=== PATIENT | male | born 1990 | race Caucasian/White ===

== ENCOUNTER 2018-01-03 19:34 | Inpatient (IN) | payer OTHER ==
[2018-01-03] MEDS ORDERED: Mouth Piece, Nicotine* 1 EACH CARTRIDGE INH PRN (19:58)
[2018-01-03] MEDS ORDERED: Nicotine Inhaler* 10 MG AMP INH PRN (19:58)
--- NOTE | 2018-01-03 20:08 | ED ---
Psychiatric Complaint - HPI Summary HPI Summary: The pt is a 27 y/o male presenting to [facility] c/o of SI for weeks worsened today. 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 The pt fears being a burden to his family if he drops out of school and thinks suicide is a better way out. He notes anxiety and insomnia. 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 - History Of Current Complaint Chief Complaint: EDMentalHealth Time Seen by Provider: 01/03/18 19:51 Hx Obtained From: Patient Onset/Duration: Lasting Weeks Timing: Constant Character: Anxious Aggravating Factor(s): Recent Stress - Schoolwork Alleviating Factor(s): Nothing Has Suicidal: Reports: Thoughts, With A Plan - Allergies/Home Medications Allergies/Adverse Reactions: Allergies Allergy/AdvReac Type Severity Reaction Status Date / Time No Known Allergies Allergy Verified 01/03/18 19:39 PMH/Surg Hx/FS Hx/Imm Hx Previously Healthy: Yes Endocrine/Hematology History: Denies: Hx Diabetes Cardiovascular History: Denies: Hx Hypertension Respiratory History: Denies: Hx Asthma Psychiatric History: Denies: Hx Depression - Cancer History Cancer Type, Location and Year: None reported - Surgical History Surgery Procedure, Year, and Place: None reported Infectious Disease History: No Infectious Disease History: Denies: Traveled Outside the [place] in Last 30 Days - Family History Known Family History: Positive: Other - Depression - mother; Suicide- Paternal aunt - Social History Occupation: Student Lives: Dormitory/Roommates Review of Systems Constitutional: Other - Positive: Insomnia Positive: Anxious, Other - Positive: SI with plans All Other Systems Reviewed And Are Negative: Yes Physical Exam - Summary Physical Exam Summary: General: well-appearing, no pain distress Skin: warm, color reflects adequate perfusion, dry Head: normal Eyes: EOMI, NEGRITA ENT: normal Neck: supple, nontender Respiratory: CTA, breath sounds present Cardiovascular: RRR Abdomen: soft, nontender Bowel: present Musculoskeletal: normal, strength/ROM intact Neurological: sensory/motor intact, A&O x3 Psychological: affect/mood appropriate Triage Information Reviewed: Yes Vital Signs On Initial Exam: Initial Vitals Temp Pulse Resp BP Pulse Ox 98.6 F 66 20 144/88 97 01/03/18 19:36 01/03/18 19:36 01/03/18 19:36 01/03/18 19:36 01/03/18 19:36 Vital Signs Reviewed: Yes Diagnostics - Vital Signs Vital Signs Temp Pulse Resp BP Pulse Ox 01/03/18 19:36 98.6 F 66 20 144/88 97 - Laboratory Result Diagrams: 01/03/18 20:09 01/03/18 20:09 Lab Statement: Any lab studies that have been ordered have been reviewed, and results considered in the medical decision making process. Course/Dx - Course Course Of Treatment: Medications reviewed. Allergies noted. MHE AND DISPOSITION PENDING AT SHIFT CHANGE - Differential Dx/Clinical Impression Provider Diagnosis: Mental health problem Discharge - Sign-Out/Discharge Documenting (check all that apply): Sign-Out Patient Signing out patient TO: Hi Yeh - 22:00hrs - Discharge Plan Referrals: [facility] [Provider Group] - Attestation Statements Document Initiated by Scribe: Yes Documenting Scribe: Phoebe Jackson Provider For Whom Ronen is Documenting (Include Credential): Dr. Abdi Castillo MD Scribe Attestation: IPhoebe , scribed for Dr. Abdi Castillo MD on 01/03/18 at 2146. Scribe Documentation Reviewed: Yes Provider Attestation: The documentation as recorded by the scribePhoebe accurately reflects the service I personally performed and the decisions made by me, Dr. Abdi Castillo MD
[2018-01-03 20:23] LABS: ABS Basophils 0 10^3/ul (0-0.2); ABS Eosinophils 0.1 10^3/ul (0-0.6); ABS Lymphocytes 1.7 10^3/ul (1.0-4.8); ABS Monocytes 0.6 10^3/ul (0-0.8); ABS Neutrophils 7.2 10^3/ul (1.5-7.7); ABS Nucleated RBC 0 10^3/ul; Eosinophil % 0.6 % (0-6); Hematocrit 45 % (42-52); Hemoglobin 15.6 g/dl (14.0-18.0); Lymphocyte % 17.3 % (25-47); Mean Corpuscular HGB Conc 35 g/dl (31-36); Mean Corpuscular Hemoglobin 29 pg (27-31); Mean Corpuscular Volume 85 fL (80-94); Mean Platelet Volume 7.2 um3 (7.4-10.4); Nucleated Red Blood Cells % 0; Platelet Count 316 10^3/ul (150-450); Red Cell Distribution Width 14 % (10.5-15); White Blood Count 9.5 10^3/ul (3.5-10.8)
[2018-01-03 20:39] LABS: Urine Appearance Clear; Urine Blood Negative (Negative); Urine Color Straw; Urine Ketones Negative (Negative); Urine Protein Negative (Negative); Urine Specific Gravity 1.009 (1.010-1.030); Urine Urobilinogen Negative (Negative)
--- NOTE | 2018-01-04 01:54 | ED ---
Progress - Progress Note Progress Note: Patient is signed out from Dr. Castillo awaiting mental health evaluation. - Consult/PCP Time Called: 22:13 Course/Dx - Course Course Of Treatment: Medications reviewed. Allergies noted. MHE AND DISPOSITION PENDING AT SHIFT CHANGE - Diagnoses Provider Diagnoses: Mental health problem Discharge - Sign-Out/Discharge Documenting (check all that apply): Receiving Sign-Out Receiving patient FROM: Abdi Castillo - Discharge Plan Referrals: [facility] [Provider Group] - Attestation Statements Document Initiated by Scribe: Yes Documenting Scribe: Sara Mariano Provider For Whom Scribe is Documenting (Include Credential): Hi Yeh MD Scribe Attestation: ISara, scribed for Hi Yeh MD on 01/04/18 at 0154.
[2018-01-04] MEDS ORDERED: Acetaminophen TAB* 325 MG PO PRN (02:49)
[2018-01-04] MEDS ORDERED: Al Hydrox/Mg Hydrox/Simet LIQ* 30 ML UDC PO PRN (02:49)
[2018-01-04] MEDS: Cetirizine* 10 MG TAB PO SCH (11:55)
[2018-01-04] MEDS: Vitamin THERAPEUTIC TAB PO SCH (11:55)
[2018-01-04] MEDS ORDERED: Citalopram TAB* 10 MG PO ONE (16:00)
[2018-01-04] MEDS: Fluticasone NASAL SPRAY 50MCG* 16 gm SPRAY BTL BOTH NARES SCH (16:35)
--- NOTE | 2018-01-04 23:02 | HP ---
PSYCHIATRIC HISTORY AND PHYSICAL: DATE OF ADMISSION: 01/04/18 JUSTIFICATION FOR ADMISSION: The patient is in need of 24-hour supervision and care secondary to suicidal ideations. 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 As I meet with the patient on the unit, he is indicating that he just started here at [employer] this semester and was going to be pursuing an JORGE, but he has been stressed because academics are difficult, fast paced and he is falling behind. At this point, he is realizing that it might not be the right path to pursue business degree as he is not connecting with the material the way that he thought that he would. 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 Unfortunately, he feels like business lifestyle would not fit with his desire for a family and to only be working 9 to 5 hours. Things have gotten progressively worse in that the last couple of days he was thinking of options including quitting and going home to [place]. The patient thought initially that he could get back into the because he believed that he had only had a temporary separation, but due to an error in his paperwork, he now finds that he is completely discharged from the [facility] and that getting back in would not be easy. An additional burden is that his girlfriend is of [place] origin and she returned to [place] country and because of immigration obstacles it would be difficult to have her return to the [place]. The patient began seriously considering withdrawing from school, but he frames this as though it would be a failure. Two days ago, he started having suicidal ideations thinking that killing himself would be the easiest way out of this circumstance. He went so far as to look over the internet for various options, finally settling on a plan to overdose on aspirin and alcohol and cut himself while sitting in a warm tub. The patient apparently went to a movie to try to distract himself, but could not stop thinking about suicide. At some point, he called the suicide hotline and actually contacted his family and revealed to them that he was suicidal and they encouraged him to come to the hospital. The patient feels like where he to quit school and return to live with his parents in [place] that he would be a burden to them. He indicates that they are declaring bankruptcy and have financial limitations and that it would be easiest for them if he were not around. His parents do not feel this way and strongly encouraged him to get help. PSYCHIATRIC HISTORY: The patient has never been psychiatrically hospitalized and has never been on medication. He has no history of suicide attempts. He has been depressed in the past, but has been able to snap out of it. He denies any history of abuse or neglect growing up, although he was in therapy at the young age of 8 when he was diagnosed with ADHD. He was briefly put on Adderall at that time, but did not tolerate it and so discontinued it. He has no prior history of violence towards others and denies homicidality. Symptom allison he endorses anxiety, sleeplessness, anhedonia, guilt, poor energy, poor concentration, sluggishness, decreased appetite, and suicidal thoughts. PAST MEDICAL HISTORY: He has seasonal allergies. MEDICATIONS: He takes Claritin and Flonase during the fall and spring. ALLERGIES: He has no known drug allergies. SUBSTANCE ABUSE HISTORY: The patient is a social alcohol drinker, but denies illicit drug use or tobacco abuse. FAMILY HISTORY: Significant for depression in his mother, and suicidal ideations. He is uncertain whether she is still in treatment. He also has a paternal aunt who of completed suicide. SOCIAL HISTORY: The patient was born and raised in a suburb of [place] to an intact family. He is the third out of 5 total children, having 1 younger brother and 3 total sisters. He went to the [employer] in [place] for his undergraduate degree. 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 He did a lot of travel in the , but did not feel that lifestyle would suit starting a family, which resulted in him leaving. He is currently in a relationship with a girlfriend from [place]. He is not sexually active, has no history of sexually transmitted diseases. He has never been , never had children. The patient was raised Yazdanism, but does not often practice these days. He has no significant history of legal problem. For fun, he enjoys video games, exercise and ethnic food along with travel. REVIEW OF SYSTEMS: The patient denies headache or double vision. He denies sore throat, cough, chest pain, difficulty breathing. He denies abdominal pain , nausea, vomiting, diarrhea, or constipation. He denies difficulty ambulating , enlarged lymph nodes, fevers, rashes, or changes in his weight. PHYSICAL EXAMINATION VITAL SIGNS: Blood pressure 126/74, heart rate 97, respiratory rate 19, temperature 98.4 degrees Fahrenheit, oxygen saturations are 98% on room air. HEENT: Head is normocephalic and atraumatic. NECK: Supple. CHEST: Clear to auscultation bilaterally. CARDIAC: Exam reveals normal heart sounds. ABDOMEN: Soft and nontender. MUSCULOSKELETAL: Exam reveals a full range of motion with no sign of edema. NEUROLOGICAL: He is grossly intact with no focal deficits. SKIN: Warm and dry. LABORATORY DATA: His CBC and CMP are within normal limits with the exception of slightly elevated creatinine at 1.18 TSH is normal at 1.53. Urinalysis is within normal limits. Urine drug screen is negative for all substances tested. MENTAL STATUS EXAM: The patient is a young white male with dark colored skin, who is clean and well groomed, wearing a flat button-down shirt and jeans. He is calm, cooperative, easy to establish a rapport with. Speech has a normal rate, tone, and volume. Mood is depressed with a tearful constricted affect. Thought process is linear and goal directed. Thought content is significant for his desire to come into the hospital for treatment. He is endorsing suicidal ideations with thoughts of overdosing on alcohol and aspirin. He denies homicidality. He denies auditory or visual hallucinations. Insight and judgment are fair given his willingness to come into the hospital for treatment. Cognitively, he is awake and alert with what would appear to be an average intellect. DIAGNOSES: Are as follows: [place] I: Major depressive disorder, single episode, severe, without psychotic features. [place] II: Deferred. 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 Clearly, he meets criteria for unipolar depressive episode and we discussed his treatment options, which would include medicine and therapy. He would also benefit from working through his academic issues either by getting accommodations to get caught up or perhaps even taking a medical leave. PLAN: The patient is admitted to the adult behavioral health unit where he is placed on q.15-minute checks for his own safety. We will give him cellphone privileges q. shift in order to call his girlfriend in [facility] over the [place] connection. We will start a trial of citalopram 20 mg p.o. daily and he will be granted comfort room and computer privileges. We will also consult the [facility] service to see if they can find him a sheet pile hammer operator to talk to. We will likely be reaching out to his family in order to rally social support and get further collateral information. It is uncertain at this time what his academic situation will be when he leaves, but at the very least, we can hook him up with crisis management services through the university. While he is here , he is certainly encouraged to avail himself of all milieu activities including individual and group psychotherapies. Followup arrangements will depend on whether he is staying in the community versus returning to the [facility]. [id number]/[facility] #: [id number] ANGELITO
[2018-01-05] MEDS: Citalopram TAB* 20 MG PO SCH (10:09)
[2018-01-05] MEDS: Fluticasone NASAL SPRAY 50MCG* 16 gm SPRAY BTL BOTH NARES SCH (10:09)
[2018-01-05] MEDS: Vitamin THERAPEUTIC TAB PO SCH (10:09)
[2018-01-05] MEDS: Cetirizine* 10 MG TAB PO SCH ×2 (10:10→21:09)
--- NOTE | 2018-01-05 16:29 | PN ---
Subjective - Subjective Date of Service: 01/05/18 Service Type: 33793 Hosp care 15 min low complexity Subjective: MARV feels better today. His suicidal thoughts have resolved and he is feeling perhaps more optimistic about resuming his college course work and perhaps recommitting to getting his JORGE. "I'm still thinking about a medical withdrawal , at least for the short term. I just don't want to give up totally on getting my JORGE. I don't want to make such a big decision when I'm so depressed like this." He has been attending groups and social on the unit. He has not yet spoken to crisis management through [employer] as of yet. He thinks the citalopram might be making him somnolent but otherwise tolerates it well so far. Objective - Appearance Appearance: Well Developed/Nourished Dysmorphic Features: No Hygiene: Normal Grooming: Well Kept - Behavior Psychomotor Activities: Abnormal-Decreased Exhibits Abnormal Movement: No - Attitude and Relatedness Attitude and Relatedness: Cooperative Eye Contact: Good - Speech Quality: Unpressured Latencies: Normal Quantity: Appropriate - Mood Patient's Decription of Mood: "Sad" - Affect Observed Affect: Constricted Affect Consistent with: Dysphoria - Thought Process Patient's Thought Process: Coherent Thought Content: No Passive Wish, No Suicidal Planning, No Homicidal Ideation, No Paranoid Ideation - Sensorium Experiencing Hallucinations: No, Sensorium is Clear Type of Hallucinations: Visual: No, Auditory: No, Command: No - Level of Consciousness Level of Consciousness: Alert Orientation: Yes Intact, Yes Orientated to Time, Yes Orientated to Place, Yes Orientated to Person - Impulse Control Impulse Control: Intact - Insight and Judgement Insight and Judgement: Good - Group Participation Particating in Group Activities: Yes - Medication Management Medication Management Adherence: Yes Assessment - Assessment Merits Inpatient Hospitalization: For Immediate Safety, For Stabilization Inpatient DSM-V Dx: F32.2 Clinical Impression: 27 y.o. 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 MHU: Problem List - Patient Problems (1) MDD (major depressive disorder), single episode, severe Current Visit: Yes Status: Acute Priority: High Code(s): F32.2 - MAJOR DEPRESSV DISORD, SINGLE EPSD, SEV W/O PSYCH FEATURES SNOMED Code(s): 479012975498 Plan - Plan Treatment Plan: Name: SCHUYLER ALCARAZ Birthdate: 1990 [id number] The patient has been started on a trial of citalopram 20mg PO qday. He is improving. Continue inpatient level care. Continued Medication Management: Start Medication Medications: Current Medications Acetaminophen (Tylenol Tab*) 650 mg PO Q4H PRN PRN Reason: PAIN or TEMP > 101 F Al Hydrox/Mg Hydrox/Simethicone (Maalox Plus*) 30 ml PO Q4H PRN PRN Reason: INDIGESTION Cetirizine HCl (Zyrtec*) 5 mg PO BEDTIME [facility] Citalopram Hydrobromide (Celexa Tab*) 20 mg PO DAILY [facility] Last Admin: 01/05/18 10:09 Dose: 20 mg Fluticasone Propionate (Flonase Nasal [place] 50mcg*) 1 spray BOTH NARES QAM [facility] Last Admin: 01/05/18 10:09 Dose: 1 spray Multivitamins (Theragran Tab*) 1 tab PO DAILY [facility] Last Admin: 01/05/18 10:09 Dose: 1 tab - Discharge Plan Discharge Plan: Inpatient Hospitalization Lab Results - Lab Results Lab Results: 01/03/18 01/03/18 01/03/18 20:09 20:09 20:17 WBC 9.5 RBC 5.30 Hgb 15.6 Hct 45 MCV 85 MCH 29 MCHC 35 RDW 14 Plt Count 316 MPV 7.2 L Neut % (Auto) 75.5 Lymph % (Auto) 17.3 L Luna % (Auto) 6.3 Eos % (Auto) 0.6 Baso % (Auto) 0.3 Absolute Neuts (auto) 7.2 Absolute Lymphs (auto) 1.7 Absolute Monos (auto) 0.6 Absolute Eos (auto) 0.1 Absolute Basos (auto) 0 Absolute Nucleated RBC 0 Nucleated RBC % 0 Sodium 139 Potassium 4.2 Chloride 106 Carbon Dioxide 26 Anion Gap 7 BUN 13 Creatinine 1.18 H Est GFR ( Amer) 88.3 Est GFR (Non-Af Amer) 73.0 BUN/Creatinine Ratio 11.0 Glucose 97 Hemoglobin A1c Calcium 9.7 Total Bilirubin 0.90 AST 14 ALT 10 Alkaline Phosphatase 52 Total Protein 7.7 Albumin 4.7 Globulin 3.0 Albumin/Globulin Ratio 1.6 Triglycerides Cholesterol LDL Cholesterol HDL Cholesterol TSH 1.53 Urine Color Straw Urine Appearance Clear Urine pH 6.0 Ur Specific [place] 1.009 L Urine Protein Negative Urine Ketones Negative Urine Blood Negative Urine Nitrate Negative Urine Bilirubin Negative Urine Urobilinogen Negative Ur Leukocyte Esterase Negative Urine Glucose Negative Salicylates < 2.50 Urine Opiates Screen Acetaminophen < 15 Ur Barbiturates Screen Ur Phencyclidine Scrn Ur Amphetamines Screen U Benzodiazepines Scrn Urine Cocaine Screen U Cannabinoids Screen Serum Alcohol < 10 01/03/18 01/05/18 01/05/18 20:17 07:32 07:32 WBC RBC Hgb Hct MCV MCH MCHC RDW Plt Count MPV Neut % (Auto) Lymph % (Auto) Luna % (Auto) Eos % (Auto) Baso % (Auto) Absolute Neuts (auto) Absolute Lymphs (auto) Absolute Monos (auto) Absolute Eos (auto) Absolute Basos (auto) Absolute Nucleated RBC Nucleated RBC % Sodium Potassium Chloride Carbon Dioxide Anion Gap BUN Creatinine Est GFR ( Amer) Est GFR (Non-Af Amer) BUN/Creatinine Ratio Glucose Hemoglobin A1c 5.1 Calcium Total Bilirubin AST ALT Alkaline Phosphatase Total Protein Albumin Globulin Albumin/Globulin Ratio Triglycerides 67 Cholesterol 132 LDL Cholesterol 64 HDL Cholesterol 54.6 TSH Urine Color Urine Appearance Urine pH Ur Specific [place] Urine Protein Urine Ketones Urine Blood Urine Nitrate Urine Bilirubin Urine Urobilinogen Ur Leukocyte Esterase Urine Glucose Salicylates Urine Opiates Screen None detected Acetaminophen Ur Barbiturates Screen None detected Ur Phencyclidine Scrn None detected Ur Amphetamines Screen None detected U Benzodiazepines Scrn None detected Urine Cocaine Screen None detected U Cannabinoids Screen None detected Serum Alcohol
[2018-01-06] MEDS: Vitamin THERAPEUTIC TAB PO SCH (08:33)
[2018-01-06] MEDS: Fluticasone NASAL SPRAY 50MCG* 16 gm SPRAY BTL BOTH NARES SCH (08:33)
[2018-01-06] MEDS: Citalopram TAB* 20 MG PO SCH (08:33)
--- NOTE | 2018-01-06 13:17 | PN ---
Subjective - Subjective Date of Service: 01/06/18 Service Type: 31976 Hosp care 15 min low complexity Subjective: MARV continues to feel better and is still denying any further SI. "I've had a chance to think about things and talk them through with my family and girlfriend and I've decided to stay at [facility] for now. I know I can take a medical leave if I need to at any point. I'm really feeling better and want to go back to class." He did speak with the campus life manager yesterday and is willing to follow up with [facility] after discharge. He is tolerating medication well. He has no complaints and staff notes indicate that he has been adherent with milieu expectations. Objective - Appearance Appearance: Well Developed/Nourished Dysmorphic Features: No Hygiene: Normal Grooming: Well Kept - Behavior Psychomotor Activities: Normal Exhibits Abnormal Movement: No - Attitude and Relatedness Attitude and Relatedness: Cooperative Eye Contact: Good - Speech Quality: Unpressured Latencies: Normal Quantity: Appropriate - Mood Patient's Decription of Mood: "Good" - Affect Observed Affect: Good Affect Consistent with: Euthymia - Thought Process Patient's Thought Process: Coherent Thought Content: No Passive Wish, No Suicidal Planning, No Homicidal Ideation, No Paranoid Ideation - Sensorium Experiencing Hallucinations: No, Sensorium is Clear Type of Hallucinations: Visual: No, Auditory: No, Command: No - Level of Consciousness Level of Consciousness: Alert Orientation: Yes Intact, Yes Orientated to Time, Yes Orientated to Place, Yes Orientated to Person - Impulse Control Impulse Control: Intact - Insight and Judgement Insight and Judgement: Good - Group Participation Particating in Group Activities: Yes - Medication Management Medication Management Adherence: Yes Assessment - Assessment Merits Inpatient Hospitalization: Consolidate Improvements, Pending Safe DC Plan Inpatient DSM-V Dx: F32.2 Clinical Impression: 27 y.o. 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 Plan - Plan Treatment Plan: Name: SCHUYLER ALCARAZ Birthdate: 1990 [id number] The patient has been started on a trial of citalopram 20mg PO qday. He is improving. Will target discharge for tomorrow, January 07. Continued Medication Management: Start Medication Medications: Current Medications Acetaminophen (Tylenol Tab*) 650 mg PO Q4H PRN PRN Reason: PAIN or TEMP > 101 F Al Hydrox/Mg Hydrox/Simethicone (Maalox Plus*) 30 ml PO Q4H PRN PRN Reason: INDIGESTION Cetirizine HCl (Zyrtec*) 5 mg PO BEDTIME [facility] Last Admin: 01/05/18 21:09 Dose: 5 mg Citalopram Hydrobromide (Celexa Tab*) 20 mg PO DAILY [facility] Last Admin: 01/06/18 08:33 Dose: 20 mg Fluticasone Propionate (Flonase Nasal [place] 50mcg*) 1 spray BOTH NARES QAM [facility] Last Admin: 01/06/18 08:33 Dose: 1 spray Multivitamins (Theragran Tab*) 1 tab PO DAILY [facility] Last Admin: 01/06/18 08:33 Dose: 1 tab - Discharge Plan Discharge Plan: Outpatient Follow Up Outpatient Program: Counseling/Psych Services at [facility]
[2018-01-06] MEDS: Cetirizine* 10 MG TAB PO SCH (22:37)
[2018-01-07 08:13] VITALS: BP 120/69
[2018-01-07] MEDS: Vitamin THERAPEUTIC TAB PO SCH (08:35)
[2018-01-07] MEDS: Citalopram TAB* 20 MG PO SCH (08:35)
[2018-01-07] MEDS: Fluticasone NASAL SPRAY 50MCG* 16 gm SPRAY BTL BOTH NARES SCH (08:35)
--- NOTE | 2018-01-08 07:35 | DS ---
DISCHARGE SUMMARY: DATE OF ADMISSION: 01/04/18 DATE OF DISCHARGE: 01/07/18 DISCHARGE DIAGNOSES: [place] I: Major depressive disorder, single episode, severe, without psychotic f eatures. [place] II: Deferred. MENTAL STATUS EXAM AT THE TIME OF DISCHARGE: The patient is a young white male with somewhat dark co lored skin, who is clean, well groomed, wearing a flannel button down shirt and jeans. He is calm, c ooperative, easy to establish a rapport with. Speech has normal rate, tone, and volume. Mood is eut hymic with full affect. Thought process is linear and goal directed. Thought content is significant for his desire to be discharged from the hospital. He denies suicidal or homicidal ideations. He d enies auditory or visual hallucinations. Insight and judgment are fair given his willingness to be d ischarged from the hospital. Cognitively, he is awake and alert with what appeared to be an average i ntellect. CONDITION AT THE TIME OF DISCHARGE: Improved. The patient is denying suicidal ideation and he has b een safe on all checks. He has done well on our unit given the fact that he has attended all groups. He has been social with peers, accepting phone calls from his family and his girlfriend, who lives [place]. He is very much future oriented, wanting to return to college to work on his masters in [employer]. He has had contact with the [facility] Crisis Management Service and they will be assisting him with accommodations to get caught up with school work. Furthermore, he has ac cepted the initiation of an antidepressant, which he is tolerating quite well without significant uday e effects and he is very much interested in outpatient followup, which will be initiated at the [facility] later on the afternoon of discharge. We have had conversations with the abhilash goetz's parents who reside in [place] and they feel that he is safe for discharge and they are agreeable with the discharge plan. The patient has done well here and is appropriately requesting discharge t o a less restrictive setting. We see no barriers to him receiving definitive treatment in the outpat ient arena. DISCHARGE INSTRUCTIONS TO THE PATIENT: A. Medications: He takes citalopram 20 mg p.o. d aily. He also takes Claritin and Flonase for seasonal allergies. B. Diet: Regular. C. Activities: As tolerated. The patient is a nonsmoker. There are no laboratory or diagnostic st udies pending at the time of discharge. D. Followup Care: The patient will be seen at the [facility] this afternoo n 01/07/18 at 3 p.m. where he will be enrolled in not only psychotherapy but med management. E. Substance abuse followup: Nonapplicable. HOSPITAL COURSE: Part-A. 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 As I meet with the patient on the unit, he is indicating that he just started here at [employer] this semes ter and was going to be pursuing JORGE but he has been stressed because academics are difficult, fast p aced, and he is falling behind. At this point, he is realizing that it might not be the right path t o pursue a business degree as he is not connecting with the material the way that he thought that he would. Initially, he thought he would like to be a banker but realized that he did not like this and would later try and to pivot to specialty in either consulting or marketing. Unfortunately, he feel s like the business lifestyle would not fit with his desire for a family and that it would be difficu lt to work 9 to 5 hours. Things have gotten progressively worse and that over the last several days, he had started thinking of options to kill himself as well as quitting school and going to [place]. He thought initially that perhaps he could get back into the because he believed that he fisher d only filed paper work for a temporary separation but due to an error in his processing, he now find s out that he is completely discharged from the [facility] and that getting back in would not be eas y. An additional burden is that his girlfriend is a [place] origin and she returned to her [facility] country and because of immigration obstacles, it would be difficult to have her return to the [facility]. Two days ago, he started having suicidal ideations thinking to kill himself would be the easiest way out of the circumstance. He went so far as to look over the internet for various option s, finally settling on a plan to overdose on aspirin and alcohol and cut himself while sitting in a w arm tub of water. The patient apparently went to a movie to try to distract himself but could not st op thinking about suicide. At some point, he called the suicide hotline and actually contacted his f deshawny and revealed to them that he was suicidal and they encouraged him to come to the hospital. The patient feels like if he were to quit school and return to live with his parents in [place] that he would be a burden to them. He indicates that they are declaring bankruptcy and have financial limita tions and that it would be easiest for them if he were not around. According to his conversation dharmesh his parents, they do not feel this way and are strongly encouraging him to get help. Part-B. Psychiatric treatment rendered: The patient was admitted to the [facility] where he was placed on q.15-minute checks for his own safety. We did initiate a trial of citalopra m 20 mg p.o. daily, which he accepted and tolerated quite well. He also received p.r.n. Claritin and Flonase for seasonal allergies. The patient was actively participatory in unit activities including individual and group psychotherapies. He was social with peers, often accepted phone calls from his family and girlfriend. We did allow him to use his cellular phone given the fact that it was an int ernational call to [facility] to speak with his significant other. His family had some contact [facility] our social work service and they did indicate that they are quite happy that the patient has chosen to get assistance with these difficulties. He was able to speak with one of the crisis managers at [facility] and ultimately opted to receive some services and accommodations therein. He is going to con tinue taking classes for now, although he understands that the option for medical discharge remains o n the table. Because he is going to be staying in this area, we made followup plans with the [facility] at [facility]. The patient has done well here and we feel that they are no signifi cant barriers that would prevent him from safely receiving treatment in the outpatient setting. [id number]/[facility] #: [id number]
== END 2018-01-07 12:45 | disposition home or self-care (01) | DRG 885 ==
LOC: ED 19:34 → BSU 01-04 02:57
PROVIDERS: ADMIT Psychiatry & Neurology Psychiatry; ATTEND Psychiatry & Neurology Psychiatry
DX: F32.2 Major depressive disorder, single episode, severe without psychotic features (principal); R45.851 Suicidal ideations; J30.2 Other seasonal allergic rhinitis; Z79.899 Other long term (current) drug therapy; Z81.8 Family history of other mental and behavioral disorders
CPT/HCPCS: 36415; 80053; 80061; 80307; 80320; 80329; 81003; 83036; 84443; 85025; 90686; 99222; 99231; 99238; 99284; A9270-GY; G0480